=== PATIENT | male | born 1995 | race African-American/Black ===

== ENCOUNTER 2018-06-28 05:56 | Inpatient (IN) | payer BC ==
[~2018-06-28] VITALS: Ht 172.7 cm; Wt 117.0 kg
[2018-06-28] MEDS ORDERED: IPRATRPIUM/ALBUTEROL 0.5/2.5MG 3 ML NEBU. ONE (05:59)
[2018-06-28] MEDS ORDERED: methylPREDNISolone SOD SUCC PF 125 MG/2 ML VIAL. ONE (06:03)
[2018-06-28] MEDS ORDERED: ALBUTEROL SULFATE 2.5 MG/3 ML NEBU. ONE (06:04)
--- NOTE | 2018-06-28 06:12 | PHYS DOC ---
Adult General Chief Complaint Chief Complaint: SHORTNESS OF BREATH HPI HPI 23-year-old male presents with shortness of breath. The patient has known asthma. He has been taking his usual asthma medications, but over the last 1 week he has had more difficulty. Shortness of breath increased considerably yesterday. The patient woke up this morning he was very short of breath and sweaty has come to the emergency room. In the past the patient has been admitted for her asthma exacerbations. He has been in the ICU before. He has not been intubated. He denies fever or chills. Review of Systems Review of Systems Constitutional: Denies fever or chills [] Eyes: Denies change in visual acuity, redness, or eye pain [] HENT: Denies nasal congestion or sore throat [] Respiratory: Shortness of breath [] Cardiovascular: No additional information not addressed in HPI [] GI: Denies abdominal pain, nausea, vomiting, bloody stools or diarrhea [] : Denies dysuria or hematuria [] Musculoskeletal: Denies back pain or joint pain [] Integument: Denies rash or skin lesions [] Neurologic: Denies headache, focal weakness or sensory changes [] Endocrine: Denies polyuria or polydipsia [] All other systems were reviewed and found to be within normal limits, except as documented in this note. Current Medications Current Medications Current Medications Medications (Trade) Dose Ordered Sig/Whitley Start Time Stop Time Status Last Admin Dose Admin Albuterol Sulfate (Ventolin) 10 mg 1X ONCE 06/28/18 06:15 06/28/18 06:16 UNV Albuterol/ Ipratropium (Duoneb) 3 ml 1X ONCE 06/28/18 06:15 06/28/18 06:16 UNV Methylprednisolone Sodium Succinate (SOLU-Medrol 125MG VIAL) 125 mg 1X ONCE 06/28/18 06:15 06/28/18 06:16 UNV Sodium Chloride 1,000 ml @ 1,000 mls/hr 1X ONCE 06/28/18 06:15 06/28/18 07:14 UNV Physical Exam Physical Exam Constitutional: Well developed, well nourished, no acute distress, non-toxic appearance. [] HENT: Normocephalic, atraumatic, bilateral external ears normal, oropharynx moist, no oral exudates, nose normal. [] Eyes: PERRLA, EOMI, conjunctiva normal, no discharge. [] Neck: Normal range of motion, no tenderness, supple, no stridor. [] Cardiovascular:Heart rate regular rhythm, no murmur [] Lungs & Thorax: Bilateral breath sounds with diffuse wheezing throughout[] Abdomen: Bowel sounds normal, soft, no tenderness, no masses, no pulsatile masses. [] Skin: Warm, diaphoretic, no erythema, no rash. [] Back: No tenderness, no CVA tenderness. [] Extremities: No tenderness, no cyanosis, no clubbing, ROM intact, no edema. [] Neurologic: Alert and oriented X 3, normal motor function, normal sensory function, no focal deficits noted. [] Psychologic: Affect normal, judgement normal, mood normal. [] EKG EKG [] Radiology/Procedures Radiology/Procedures [] Impressions: Preliminary interpretation: No acute cardiopulmonary disease. Portable chest, 06/28/2018: HISTORY: Shortness of breath, asthma The heart size and pulmonary vascularity are normal. No pulmonary infiltrate is seen. There is no evidence of pleural fluid. IMPRESSION: No significant cardiopulmonary abnormality is detected. Electronically signed by: Juan Alberto Santizo MD (06/28/2018 7:36 AM) [facility] DICTATED AND SIGNED BY: JUAN ALBERTO SANTIZO MD DATE: 06/28/18 0735 CC: JOEY GIVENS DO; NON,STAFF Course & Med Decision Making Course & Med Decision Making Pertinent Labs and Imaging studies reviewed. (See chart for details) The patient's labs are unremarkable. His chest x-ray is unremarkable. Patient was treated with a 1 hour nebulizer treatment followed by 1 mg of ipratropium treatment and then another one hour treatment. The patient felt better, but still had significant diffuse wheezing bilaterally. I believe the patient should be admitted for further treatment. The patient is in agreement with this plan. I discussed the case with Dr. Og and he has accepted the patient for admission. [] Dragon Disclaimer Dragon Disclaimer This electronic medical record was generated, in whole or in part, using a voice recognition dictation system. Departure Departure: Impression: Primary Impression: Asthma exacerbation Disposition: ADMITTED INPATIENT Condition: STABLE Referrals: PCP,NO (PCP) Problem Qualifiers Primary Impression: Asthma exacerbation Asthma severity: moderate Asthma persistence: persistent Qualified Codes: J45.41 - Moderate persistent asthma with (acute) exacerbation JOEY GIVENS DO Jun 28, 2018 06:12
[2018-06-28] MEDS ORDERED: methylPREDNISolone SOD SUCC PF 125 MG/2 ML VIAL. IV ONE ×2 (06:15)
[2018-06-28] MEDS ORDERED: ALBUTEROL SULFATE 2.5 MG/3 ML NEBU. CONT NEB ONE (06:15)
[2018-06-28] MEDS ORDERED: IPRATRPIUM/ALBUTEROL 0.5/2.5MG 3 ML NEBU. NEB ONE (06:15)
[2018-06-28] MEDS ORDERED: ALBUTEROL SULFATE 2.5 MG/3 ML NEBU. NEB ONE (06:15)
[2018-06-28] MEDS ORDERED: IV NORMAL SALINE 1,000ML 1,000 ML IV ONE (06:15)
[2018-06-28 06:42] LABS: BASO # 0.1 x10^3/uL (0.0-0.2); BASO % 1 % (0-3); EOS % 0 % (0-3); HEMATOCRIT 46.2 % (39.0-53.0); HEMOGLOBIN 15.4 g/dL (13.0-17.5); LYMPH # 3.1 x10^3/uL (1.0-4.8); LYMPH % 44 % (24-48); MEAN CORPUSCULAR HEMOGLOBIN 28 pg (25-35); MEAN CORPUSCULAR HGB CONC 33 g/dL (31-37); MEAN CORPUSCULAR VOLUME 84 fL (79-100); MONO # 0.8 x10^3/uL (0.0-1.1); MONO % 11 % (0-9); NEUT # 3.1 x10^3uL (1.8-7.7); NEUT % 44 % (31-73); PLATELET COUNT 273 x10^3/uL (140-400); RED CELL DISTRIBUTION WIDTH 14.6 % (11.5-14.5); WHITE BLOOD COUNT 6.9 x10^3/uL (4.0-11.0)
[2018-06-28 06:54] LABS: ALBUMIN 3.7 g/dL (3.4-5.0); ALBUMIN/GLOBULIN RATIO 0.8 (1.0-1.7); CALCIUM 8.9 mg/dL (8.5-10.1); CREATININE 0.9 mg/dL (0.7-1.3); GFR 106.5; POTASSIUM 4.6 mmol/L (3.5-5.1); TOTAL BILIRUBIN 0.5 mg/dL (0.2-1.0); TOTAL PROTEIN 8.2 g/dL (6.4-8.2)
[2018-06-28] MEDS ORDERED: IPRATROPIUM BROMIDE 0.5 MG/2.5 ML NEBU. NEB ONE (07:30)
--- NOTE | 2018-06-28 07:38 | RAD ---
Portable chest, 06/28/2018: HISTORY: Shortness of breath, asthma The heart size and pulmonary vascularity are normal. No pulmonary infiltrate is seen. There is no evidence of pleural fluid. IMPRESSION: No significant cardiopulmonary abnormality is detected. Electronically signed by: Juan Alberto Santizo MD (06/28/2018 7:36 AM) [facility]
[2018-06-28] MEDS ORDERED: ALBUTEROL SULFATE 2.5 MG/3 ML NEBU. NEB PRN ×2 (10:00→14:15)
[2018-06-28 10:39] VITALS: BP 153/85
[2018-06-28] MEDS ORDERED: ALBU2.5V8 IH (11:32)
[2018-06-28] MEDS ORDERED: ADVAIR INHALER INH (11:54)
[2018-06-28 14:30] VITALS: BP 143/88
--- NOTE | 2018-06-28 14:49 | HP ---
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 He is apparently known to have bronchial asthma and has been taking his asthma medication regularly and over the last week had more difficulty with shortness of breath that has increased considerably yesterday. He woke up this morning with very short of breath, sweating and came to the Emergency Room. He has been admitted before with asthma exacerbation and has been in the ICU; however, has never required intubation. He denied any chest pain. He did complain of cough with scanty whitish sputum. Denied any fever, chills or rigors. He was extensively investigated in the Emergency Room and his lab work was unremarkable. Chest x-ray was unremarkable. He was treated with steroids and was admitted to continue treatment. PAST MEDICAL HISTORY: Significant for bronchial asthma. PAST SURGICAL HISTORY: Significant for arthroscopic surgery of both knee joints. FAMILY HISTORY: The patient's both parents and 1 sister are asthmatic. 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 He does not smoke. Drinks alcohol occasionally and does not drink or use any drugs. ALLERGIES: He has no known drug allergies. MEDICATIONS: He is currently on following medications: He is on albuterol sulfate for Ventolin inhaler 1 puff every 4 hours and Advair Diskus twice a day. REVIEW OF SYSTEMS: As per history of present illness. PHYSICAL EXAMINATION: GENERAL: On arrival to the Emergency Room, the patient was clearly very tachypneic and tachycardic, apparently was unable to finish a sentence and using tripod position. VITAL SIGNS: His heart rate was 114, blood pressure was 162/93, temperature was 98.3, respiratory rate was 52 and oxygen saturation was 96% on room air. HEAD, EYES, EARS, NOSE AND THROAT: Showed normocephalic, atraumatic. NECK: Supple. HEART: Showed normal first and second heart sounds with no gallop or murmur. CHEST: Shows central trachea, reduced expansion, reduced air entry with diffuse rhonchi bilaterally. No crepitation. ABDOMEN: Distended, soft, nontender. NEUROLOGIC: He was awake, alert, responding appropriately. All cranial nerves are intact. EXTREMITIES: He moves extremities without difficulty, ambulates without assistance or assistive devices. LABORATORY DATA: In the Emergency Room showed a white cell count of 6900, hemoglobin 15.4, hematocrit 46, MCV 84 and platelet count 273,000 with normal manual differential. His chemistry showed a serum sodium 142, potassium 4.6, chloride 105, bicarbonate 28, anion gap of 9, BUN 12, creatinine 0.9, estimated GFR was 160 mL per minute. His glucose was 96, calcium was 8.9. Total bilirubin, AST, ALT, alkaline phosphatase slightly elevated. Total protein was 8.2, albumin was 3.7. His chest x-ray showed that the patient has heart size and pulmonary vascularity are normal. No pulmonary infiltrate is seen, no evidence of pleural fluid. ASSESSMENT AND PLAN: The patient was admitted with acute severe asthma. We will continue with nebulized albuterol and Atrovent, steroids. I will add Pulmicort as well as Singulair and follow him closely. We will check peak flow meter and peak flow rate and decide the further management accordingly. LINCOLN SALGUERO MD DR: JUSTINE/david JOB#: [id number] / [id number]
[2018-06-28] MEDS: methylPREDNISolone SOD SUCC PF 40 MG/ML VIAL. IV SCH ×2 (15:11→21:51)
[2018-06-28] MEDS: IPRATRPIUM/ALBUTEROL 0.5/2.5MG 3 ML NEBU. NEB SCH ×2 (15:43→20:13)
[2018-06-28 19:35] VITALS: BP 151/81
[2018-06-28] MEDS: guaiFENesin/PS-EPHED 600/60MG 1 TAB TAB.ER.12H PO SCH (20:28)
[2018-06-28] MEDS ORDERED: MONTELUKAST 10 MG TABLET. PO SCH (21:00)
[2018-06-28] MEDS ORDERED: methylPREDNISolone SOD SUCC PF 40 MG/ML VIAL. IV SCH (22:00)
[2018-06-29] VITALS: BP 151/74
[2018-06-29] MEDS: IPRATRPIUM/ALBUTEROL 0.5/2.5MG 3 ML NEBU. NEB SCH ×2 (05:15→09:41)
[2018-06-29] MEDS: methylPREDNISolone SOD SUCC PF 40 MG/ML VIAL. IV SCH ×2 (05:27→13:15)
[2018-06-29 05:56] VITALS: BP 150/79
[2018-06-29] MEDS: guaiFENesin/PS-EPHED 600/60MG 1 TAB TAB.ER.12H PO SCH (08:23)
[2018-06-29 11:05] VITALS: BP 167/72
[2018-06-29] MEDS ORDERED: PRED20TA PO (14:31)
[2018-06-29] MEDS ORDERED: FLUT1DIS3 IH (14:39)
--- NOTE | 2018-06-29 15:13 | DS ---
DATE OF DISCHARGE: 06/29/2018 HOSPITAL COURSE: The patient is sitting, slightly propped up in bed, in no apparent distress, feeling much, much better. He is able to talk and finish sentence without difficulty, not using any accessory muscles and not in tripod position, is almost flat in bed. PHYSICAL EXAMINATION: GENERAL: When I examined him, he looked well and was clearly comfortable. No pallor, jaundice, cyanosis, or thyromegaly. No jugular venous distension. No limb edema. VITAL SIGNS: His heart rate was 103, blood pressure was 167/72, temperature was 97.6, respiratory rate 20, and oxygen saturation was 95% on room air. HEAD, EYES, EARS, NOSE AND THROAT: Normocephalic, atraumatic. NECK: Supple. HEART: Showed normal first and second heart sounds. No gallop, rub or murmur. CHEST: Clear to auscultation. No crepitation or rhonchi. ABDOMEN: Distended, soft, nontender. No guarding or rigidity. No organomegaly. All hernial orifice intact. Bowel sounds normal. NEUROLOGIC: He was awake, alert, responding appropriately. All cranial nerves intact. He moves extremities without difficulty, ambulates without assistance or assistive devices. His intake and output are incompletely recorded. LABORATORY DATA: His white cell count was 6900, hemoglobin 15, hematocrit 46, MCV 84 and platelet count 273,000. His serum sodium was 142, potassium 4.6, chloride 105, bicarbonate 28, anion gap of 9, BUN 12, creatinine 0.9, estimated GFR was 106 mL per minute, his glucose 96, calcium was 8.9. Total bilirubin, AST, ALT, alkaline phosphatase slightly elevated. Total protein was 8.2, albumin 3.7. DISCHARGE MEDICATIONS: He was discharged home to continue on Advair Diskus 250/50 twice a day, prednisone in a tapering course. He is also on albuterol sulfate solution for nebulizer every 4 hours as needed and Ventolin inhaler 1 puff every 4 hours as needed. FINAL DISCHARGE DIAGNOSIS: Acute severe asthma, resolved. His peak flow rate has improved to 460. LINCOLN SALGUERO MD DR: JUSTINE/david JOB#: [id number] / [id number]
== END 2018-06-29 15:07 | disposition home or self-care (01) | DRG 202 ==
LOC: ER 05:56 → EDBD 05:56 → 1 SOUTH 10:23
PROVIDERS: ADMIT Internal Medicine; ATTEND Internal Medicine
DX: J45.901 Unspecified asthma with (acute) exacerbation (principal); R65.11 Systemic inflammatory response syndrome (SIRS) of non-infectious origin with acute organ dysfunction; Z82.5 Family history of asthma and other chronic lower respiratory diseases; Z79.899 Other long term (current) drug therapy
CPT/HCPCS: 36415; 71045; 80053; 84484; 85025; 90471; 90756; 94640; 94644; 96361; 96374; J2920; J2930; J7613; J7620; J7644; 99285-25; J7030; Q2035